=== PATIENT | female | born 1965 | race Hispanic/Latino ===

== ENCOUNTER 2021-02-27 10:24 | Observation (INO) | payer BC ==
[2021-02-23 10:25] LABS: BASOPHILS % 0.4 % (0.0-1.0); EOSINOPHILS # (AUTO) 0.1 (0.0-0.4); EOSINOPHILS % 1.7 % (0.0-6.0); HEMATOCRIT 40.7 % (34.2-44.1); HEMOGLOBIN 13.6 g/dL (12.0-16.0); LYMPHOCYTES # (AUTO) 2.6 (1.0-3.2); LYMPHOCYTES % 33.4 % (18.0-39.1); MEAN CORPUSCULAR HGB CONC 33.4 g/dL (31-35); MEAN CORPUSCULAR VOLUME 89.8 fL (81-99); MONOCYTES # (AUTO) 0.4 (0.2-0.8); NEUTROPHILS # (AUTO) 4.6 (2.1-6.9); PLATELET COUNT 214 x10e3/uL (140-360); RED BLOOD COUNT 4.53 x10e6/uL (3.6-5.1); RED CELL DISTRIBUTION WIDTH 13.4 % (11.7-14.4)
[~2021-02-27] VITALS: Ht 167.6 cm; Wt 110.7 kg
[~2021-02-27 10:24] MED LIST: LEVOTHYROXINE50 MCG PO; METOPROLOL SUCC50 MG PO; NAPROXEN250 MG PO; ROPIVACAINE 246.25 MG, EPINEPHRINE HCL 1:1000 1ML 0.5 MG, CLONIDINE HCL 0.08 MG, KETORO... INJ ONE
[2021-02-27] MEDS ORDERED: VANCOMYCIN HCL 1,000 MG ONE (10:45)
[2021-02-27] MEDS ORDERED: SODIUM CHLORIDE 0.9% 500ML 500 ML ONE (10:45)
[2021-02-27] MEDS ORDERED: TRANEXAMIC ACID 1,000 MG/10 ML ML ONE (10:46)
[2021-02-27] MEDS ORDERED: CELECOXIB 200 MG CAP ONE (10:59)
[2021-02-27] MEDS ORDERED: DEXAMETHASONE SOD PHOS 10 MG/1 ML VIAL ONE (10:59)
[2021-02-27] MEDS ORDERED: GABAPENTIN 300 MG CAP ONE (11:00)
[2021-02-27] MEDS ORDERED: CEFAZOLIN SOD 1 GM/NS 50ML 100 ML IV ONE (11:00)
[2021-02-27] MEDS ORDERED: SEVOFLURANE INHAL SOLN 250 ML PEN BTL ONE (12:06)
[2021-02-27] MEDS ORDERED: PROPOFOL IV EMULSION 10 MG/ML 20 ML VIAL ONE (12:06)
[2021-02-27] MEDS ORDERED: ONDANSETRON HCL INJ 2MG/ML 2ML 2 MG/ML VIAL ONE (12:06)
[2021-02-27] MEDS ORDERED: LIDOCAINE HCL 2% LOCAL INJ 5 ML SDV VIAL INJ ONE (12:06)
[2021-02-27] MEDS ORDERED: LIDOCAINE 2%/ EPINEPHRINE 20ML MDV ONE (12:08)
[2021-02-27] MEDS ORDERED: ACETAMINOPHEN 1000 MG/100 ML 100 ML IV ONE (12:08)
[2021-02-27] MEDS ORDERED: ROPIVACAINE 0.5% 5 MG/ML 30 ML SDV ONE (12:08)
[2021-02-27] MEDS ORDERED: FENTANYL CITRATE/PF 100MCG/2 ML INJ ONE ×3 (12:15→13:23)
[2021-02-27] MEDS ORDERED: MIDAZOLAM HCL 2 MG/2 ML VIAL ONE (12:15)
[2021-02-27] MEDS ORDERED: ONDANSETRON HCL INJ 2MG/ML 2ML 2 MG/ML VIAL IV PRN (12:45)
[2021-02-27] MEDS ORDERED: DIPHENHYDRAMINE HCL INJ 50 MG/ML VIAL IV PRN (12:45)
[2021-02-27] MEDS ORDERED: DOCUSATE SODIUM 100 MG CAP PO PRN (12:45)
[2021-02-27] MEDS ORDERED: HYDROCODONE/APAP 5MG-325MG TAB PO PRN (12:45)
[2021-02-27] MEDS ORDERED: ACETAMINOPHEN 650 MG SUPP PR PRN (12:45)
[2021-02-27] MEDS ORDERED: KETOROLAC TROMETHAMINE 30 MG/ML VIAL IV PRN (12:45)
[2021-02-27] MEDS ORDERED: MORPHINE SULFATE INJ 2 MG/ML SYR ONE (13:17)
[2021-02-27] MEDS ORDERED: HYDROMORPHONE 1MG/1ML INJ ONE (14:15)
[2021-02-27] MEDS ORDERED: LABETALOL HCL 20 ML ONE (14:22)
[2021-02-27] MEDS: HYDROCODONE/APAP 7.5MG-325MG 1 EA TAB PO PRN ×2 (15:05→19:45)
[2021-02-27] MEDS: SODIUM CHLORIDE 0.9% 1000ML 1,000 ML IV SCH ×2 (15:08→23:34)
[2021-02-27 15:19] VITALS: BP 156/76
[2021-02-27] MEDS ORDERED: ACETAMINOPHEN 1000 MG/100 ML IV PRN (16:00)
[2021-02-27 16:10] LABS: BASOPHILS # (AUTO) 0.1 (0.0-0.1); BASOPHILS % 0.3 % (0.0-1.0); EOSINOPHILS % 0.1 % (0.0-6.0); HEMATOCRIT 40.5 % (34.2-44.1); HEMOGLOBIN 13.3 g/dL (12.0-16.0); LYMPHOCYTES # (AUTO) 1.1 (1.0-3.2); LYMPHOCYTES % 6.7 % (18.0-39.1); MEAN CORPUSCULAR HEMOGLOBIN 29.8 pg (28-32); MEAN CORPUSCULAR HGB CONC 32.8 g/dL (31-35); MEAN CORPUSCULAR VOLUME 90.8 fL (81-99); MONOCYTES # (AUTO) 0.3 (0.2-0.8); MONOCYTES % 1.6 % (4.4-11.3); NEUTROPHILS # (AUTO) 15.3 (2.1-6.9); NEUTROPHILS % 90.6 % (38.7-80.0); PLATELET COUNT 219 x10e3/uL (140-360); RED BLOOD COUNT 4.46 x10e6/uL (3.6-5.1); RED CELL DISTRIBUTION WIDTH 13.4 % (11.7-14.4)
[2021-02-27] MEDS: ASPIRIN 325 MG TAB PO SCH (16:39)
[2021-02-27] MEDS: CELECOXIB 100 MG CAP PO SCH (16:39)
[2021-02-27 16:40] VITALS: BP 157/84
[2021-02-27 20:00] VITALS: BP 117/56
[2021-02-27] MEDS: CEFAZOLIN SOD 1 GM/NS 50ML 50 ML IV SCH (20:00)
[2021-02-27 20:56] VITALS: BP 117/56
[2021-02-27] MEDS ORDERED: ZOLPIDEM TARTRATE 5 MG TAB PO PRN (21:00)
[2021-02-28] VITALS: BP 112/49
[2021-02-28] MEDS: HYDROCODONE/APAP 7.5MG-325MG 1 EA TAB PO PRN ×3 (01:23→11:10)
[2021-02-28 04:00] VITALS: BP 115/91
[2021-02-28] MEDS: CEFAZOLIN SOD 1 GM/NS 50ML 50 ML IV SCH ×2 (04:18→12:02)
[2021-02-28 05:43] LABS: BASOPHILS % 0.2 % (0.0-1.0); HEMATOCRIT 32.9 % (34.2-44.1); HEMOGLOBIN 10.9 g/dL (12.0-16.0); LYMPHOCYTES # (AUTO) 1.6 (1.0-3.2); LYMPHOCYTES % 13.3 % (18.0-39.1); MEAN CORPUSCULAR HEMOGLOBIN 29.8 pg (28-32); MEAN CORPUSCULAR HGB CONC 33.1 g/dL (31-35); MEAN CORPUSCULAR VOLUME 89.9 fL (81-99); MONOCYTES # (AUTO) 0.7 (0.2-0.8); MONOCYTES % 5.4 % (4.4-11.3); NEUTROPHILS # (AUTO) 9.8 (2.1-6.9); NEUTROPHILS % 80.5 % (38.7-80.0); PLATELET COUNT 196 x10e3/uL (140-360); RED BLOOD COUNT 3.66 x10e6/uL (3.6-5.1); RED CELL DISTRIBUTION WIDTH 13.3 % (11.7-14.4)
[2021-02-28] MEDS ORDERED: LEVOTHYROXINE SODIUM 50 MCG TAB PO SCH (06:00)
[2021-02-28 08:10] VITALS: BP 100/51
[2021-02-28] MEDS: SODIUM CHLORIDE 0.9% 1000ML 1,000 ML IV SCH (08:45)
[2021-02-28] MEDS ORDERED: METOPROLOL SUCCINATE 50 MG TAB XL PO SCH (09:00)
[2021-02-28] MEDS: ASPIRIN 325 MG TAB PO SCH (10:00)
[2021-02-28] MEDS: CELECOXIB 100 MG CAP PO SCH (10:00)
[2021-02-28 10:33] VITALS: BP 100/51
[2021-02-28 12:04] VITALS: BP 130/58
== END 2021-02-28 12:51 | disposition home or self-care (01) ==
LOC: OR 10:24 → EDBD 11:00 → PACU V 12:38 → MED/SURG 14:32
PROVIDERS: ADMIT Specialist; ATTEND Specialist
DX: M17.11 Unilateral primary osteoarthritis, right knee (principal); I10 Essential (primary) hypertension; J45.909 Unspecified asthma, uncomplicated; D64.9 Anemia, unspecified; E03.9 Hypothyroidism, unspecified; Z96.652 Presence of left artificial knee joint; E66.9 Obesity, unspecified; Z68.39 Body mass index [BMI] 39.0-39.9, adult; Z01.810 Encounter for preprocedural cardiovascular examination; Z01.812 Encounter for preprocedural laboratory examination; Z20.822 Contact with and (suspected) exposure to COVID-19
CPT/HCPCS: 27447; 36415 ×3; 73560; 85025 ×3; 86850; 86900; 86920; 93005; 97116 ×2; 97162; 97530; C1713 ×3; C1776 ×2; G0378 ×2; J0131; J0171; J0690 ×2; J1100; J1170; J1885; J2001 ×2; J2250; J2270; J2405; J2704; J2795; J3010; J3370; J3490; J7030 ×2; J7040; U0002